=== PATIENT | male | born 1990 | race Caucasian/White ===

== ENCOUNTER 2016-07-25 12:49 | Emergency (ER) | payer SELFPAY ==
[~2016-07-25] VITALS: Ht 195.6 cm; Wt 74.8 kg
[~2016-07-25 12:49] MED LIST: ALPR2TAB2 PO; AZIT500T2 PO; ESCI20TA2 PO; PHEN100T26 PO; SULF-222 PO
[2016-07-25] MEDS ORDERED: morphine INJ 10 MG/ML 1ML (SYR OR VIAL) IM STA (13:13)
[2016-07-25] MEDS ORDERED: TETANUS,DIPTH,PERTUSS P/F (BOOSTRIX) 0.5 ML VIAL IM STA (13:13)
--- NOTE | 2016-07-25 13:15 | ED General ---
General Chief Complaint: Laceration Stated Complaint: L FOOT BIG TOE INJ Nursing Triage Note: AMB TO ED REPORTS WAS CHASING DOG LAST NIGHT STEPPED ON SOMETHING. SUPERFICAL LAC TO R 1ST AND 2ND TOE ABD R 1ST Nursing Sepsis Screen: No Definite Risk Source of Information: Patient Exam Limitations: No Limitations History of Present Illness Time Seen by Provider: 13:00 Allergies and Home Medications Allergies Coded Allergies: Cefaclor (Unverified Allergy, 11/07/10) Home Medications Trimethoprim/Sulfamethoxazole 1 Ea Tablet, 1 TAB PO DAILY, (Reported) Past Jtooxir-Hzgvms-Ugxhat Hx Patient Social History Alcohol Use: Denies Use Recreational Drug Use: Yes (DAILY MARIJUANA USE) Drug of Choice: meth, marijuana Smoking Status: Current Everyday Smoker Type Used: Cigarettes Recent Foreign Travel: No Contact w/Someone Who Travel: No Recent Infectious Disease Expo: No Recent Hopitalizations: No Surgeries HX Surgeries: Yes (TUBES IN EARS) Respiratory Hx Respiratory Disorders: No Cardiovascular Hx Cardiac Disorders: No Neurological Hx Neurological Disorders: No Reproductive System Hx Reproductive Disorders: No Genitourinary Hx Genitourinary Disorders: No Gastrointestinal Hx Gastrointestinal Disorders: No Musculoskeletal Hx Musculoskeletal Disorders: No Endocrine Hx Endocrine Disorders: No HEENT HX ENT Disorders: No Cancer Hx Cancer: No Psychosocial Hx Psychiatric Problems: Yes Behavioral Health Disorders: Anxiety, Depression Integumentary HX Skin/Integumentary Disorder: Yes (MRSA) Blood Transfusions Hx Blood Disorders: No Physical Exam Vital Signs Vital Sign - Last 12Hours 07/25/16 12:54 Temp 99.0 Pulse 70 Resp 18 B/P (MAP) 145/77 Pulse Ox 100 O2 Delivery Room Air Capillary Refill : Less Than 3 Seconds Progress/Results/Core Measures Results/Orders My Orders Orders - FEI SOOD PA DiphtSandi(Acell),Tet Adult (Boostrix (07/25/16 13:13) Morphine Injection (Morphine Injection (07/25/16 13:13) Lidocaine 2% Pf 20 Ml (Xylocaine 2% Pf) (07/25/16 14:00) Bupivacaine 0.5% Injection (Sensorcaine (07/25/16 14:00) Lidocaine 2% Injection 20 Ml (Xylocaine (07/25/16 13:52) Vital Signs/I&O Vital Sign - Last 12Hours 07/25/16 12:54 Temp 99.0 Pulse 70 Resp 18 B/P (MAP) 145/77 Pulse Ox 100 O2 Delivery Room Air Blood Pressure Mean: 99 Departure Impression Impression: Primary Impression: Avulsion of skin of toe Qualified Codes: S91.109A - Unspecified open wound of unspecified toe(s) without damage to nail, initial encounter Disposition: HOME, SELF-CARE Condition: Improved Departure-Patient Inst. Decision time for Depature: 14:21 Referrals: MIRNA WEST MD (PCP/Family) Primary Care Physician Patient Instructions: SKIN AVULSION Add. Discharge Instructions: All discharge instructions reviewed with patient and/or family. Voiced understanding. Tylenol extra strength kcqh-qjc-[id number] as directed for pain. Ibuprofen 800 mg by mouth every 8 hours as needed for pain. Tomorrow morning remove the bandage, shower with antibacterial soap, pat dry, apply triple antibiotics ointment twice daily for 3 days to the left toe and cover with a Band-Aid. Follow-up with your family practitioner for recheck if needed. Return to the emergency department for increased pain, redness, drainage, fever , or any other concerns. Work/School Note: Work Release Form Date Seen in the Emergency Department: Jul 25, 2016 Return to Work: Jul 28, 2016 FEI SOOD Jul 25, 2016 13:15
[2016-07-25] MEDS ORDERED: LIDOCAINE 2% 20 ML (XYLOCAINE) VIAL ONE (13:52)
[2016-07-25] MEDS ORDERED: LIDOCAINE PF 2% 20 ML (XYLOCAINE) AMP INJ ONE (14:00)
[2016-07-25] MEDS ORDERED: BUPIVACAINE 0.5% 30 ML (SENSORCAINE) VIAL INJ ONE (14:00)
[2016-07-25 14:32] VITALS: BP 146/77
== END 2016-07-25 14:31 | disposition home or self-care (01) ==
LOC: EDUNIT# 12:49 → ER 12:51
DX: S91.112A Laceration without foreign body of left great toe without damage to nail, initial encounter (principal); S91.115A Laceration without foreign body of left lesser toe(s) without damage to nail, initial encounter; F17.210 Nicotine dependence, cigarettes, uncomplicated; W22.8XXA Striking against or struck by other objects, initial encounter
CPT/HCPCS: 90715

== ENCOUNTER 2016-09-19 10:53 | Emergency (ER) | payer SELFPAY ==
[~2016-09-19] VITALS: Ht 180.3 cm; Wt 74.8 kg
--- NOTE | 2016-09-19 11:24 | ED EENT ---
History of Present Illness General Chief Complaint: Ear Problems Stated Complaint: LEFT EAR PAIN Nursing Triage Note: PT C/O L EAR PAIN X1 WEEK. WAS SEEN AT [facility] WHERE THEY FLUSHED EAR. NO RELIEF OF PAIN Source: patient Exam Limitations: no limitations History of Present Illness Time seen by provider: 11:24 Initial Comments 26 her old male patient presents to the emergency department complaints of left ear pain for one week. Patient states she was seen at [facility] times to with attempted flushing of the ear for cerumen impaction. Denies improvement in symptoms. Now has left sided headache and left jaw pain. Patient states he was instructed to follow-up with Dr. richmond as an outpatient, but states he is unable to afford the office visit due to not having insurance. Timing/Duration: last week Location: ear (L) Prearrival Treatment: other (flushing the left ear x2 at [facility] Allergies and Home Medications Allergies Coded Allergies: Cefaclor (Unverified Allergy, 11/07/10) Home Medications Docusate Sodium 10 Mg/Ml Liquid, 2-3 DROPS EACH EAR UD, #1 Ref 0 2-3 drops to the left ear BID prn earwax impaction. Prescribed by: FEI SOOD on 09/19/16 1154 Sulfamethoxazole/Trimethoprim 1 Each Tablet, 1 EACH PO BID, #14 Ref 0 Prescribed by: FEI SOOD on 09/19/16 1249 Tramadol HCl 50 Mg Tablet, 50 MG PO Q6H PRN for PAIN-MODERATE TO SEVERE, #10 Ref 0 Prescribed by: FEI SOOD on 09/19/16 1249 Trimethoprim/Sulfamethoxazole 1 Ea Tablet, 1 TAB PO DAILY, (Reported) Review of Systems Constitutional: No chills, No dizziness, No fever, No malaise Eyes: No Symptoms Reported Ears: See HPI, Denies Dizziness, Pain (left ear pain), Denies Tinnitus, Denies Bloody Discharge, Denies Clear Discharge, Denies Purulent Discharge, Denies Serosanguinous Discharge, Previous Injury (cauliflower ear bilaterally from wrestling in high school), Other (muffled sounds in the left ear) Nose: denies congestion, denies pain Mouth: see HPI Throat: denies pain, denies swelling, denies neck stiffness, denies hoarse, denies aphonia, denies muffled, denies painful swallowing, denies difficulty with fluids Respiratory: no symptoms reported Cardiovascular: no symptoms reported Skin: no symptoms reported Neurological: See HPI, Headache All Other Systems Reviewed Negative Unless Noted: Yes (Negative excepted noted.) Past Ituneen-Jafotf-Apzdpf Hx Patient Social History Alcohol Use: Occasionally Uses Recreational Drug Use: No Drug of Choice: meth, marijuana Smoking Status: Current Everyday Smoker Type Used: Cigarettes Recent Foreign Travel: No Contact w/Someone Who Travel: No Recent Infectious Disease Expo: No Recent Hopitalizations: No Immunizations Up To Date Tetanus Booster (TDap): Unknown Surgeries HX Surgeries: Yes (TUBES IN EARS) Respiratory Hx Respiratory Disorders: No Cardiovascular Hx Cardiac Disorders: No Neurological Hx Neurological Disorders: No Reproductive System Hx Reproductive Disorders: No Genitourinary Hx Genitourinary Disorders: No Gastrointestinal Hx Gastrointestinal Disorders: No Musculoskeletal Hx Musculoskeletal Disorders: No Endocrine Hx Endocrine Disorders: No HEENT HX ENT Disorders: Yes (cauliflower ear bilaterally from wrestling in high school) Cancer Hx Cancer: No Psychosocial Hx Psychiatric Problems: Yes Behavioral Health Disorders: Anxiety, Depression Integumentary HX Skin/Integumentary Disorder: Yes (MRSA) Blood Transfusions Hx Blood Disorders: No Reviewed Nursing Assessment Reviewed/Agree w Nursing PMH: Yes Family Medical History Significant Family History: No Pertinent Family Hx Physical Exam Vital Signs Vital Sign - Last 12Hours 09/19/16 11:09 Temp 96.6 Pulse 76 Resp 18 B/P (MAP) 129/91 Pulse Ox 98 General Appearance: WD/WN, no apparent distress Eyes: bilateral eye EOMI, bilateral eye PERRL, bilateral eye normal inspection Ears: right ear TM normal, right ear canal normal, left ear other (mild erythema and swelling of the external ear canal. cerumen impaction noted. deformity of the auricle bilaterally consistent with h/o cauliflower ear.), left ear tenderness (Tenderness with movement of the auricle and tragus.) Nose: normal inspection, No sinus tenderness Mouth/Throat: normal mouth inspection, pharynx normal, No dental tenderness, No mandibular swelling, No maxillary swelling Neck: non-tender, full range of motion, supple, lymphadenopathy (R), lymphadenopathy (L) Cardiovascular: regular rate, rhythm, no murmur Respiratory: lungs clear, normal breath sounds, no respiratory distress Neurologic/Psychiatric: alert, normal mood/affect, oriented x 3 Skin: normal color, warm/dry Ear : Ear Location: Left (Left) Foreign Body Removal: Impacted Cerumen Use of: Ear Curette, Irrigation Progress/Conclusion attempted ear wax removal of the left ear. a small amount of cerumen removed, however, patient was unable to tolerate complete removal due to discomfort from the waterpik. Patient to use colace solution, Cortisporin Otic, and to follow- up with [facility] for recheck. He is to follow-up with [facility] for recheck. Progress/Results/Core Measures Results/Orders My Orders Orders - FEI SOOD Neomy/Poly/Hc Otic Suspension (Cortispor (09/19/16 13:00) Vital Signs/I&O Vital Sign - Last 12Hours 09/19/16 11:09 Temp 96.6 Pulse 76 Resp 18 B/P (MAP) 129/91 Pulse Ox 98 Blood Pressure Mean: 104 Departure Impression Impression: Primary Impression: Impacted cerumen Qualified Codes: H61.22 - Impacted cerumen, left ear Additional Impressions: Ear pain, left Left otitis externa Qualified Codes: H60.502 - Unspecified acute noninfective otitis externa, left ear Disposition: 01 HOME, SELF-CARE Condition: Improved Departure-Patient Inst. Decision time for Depature: 11:45 Referrals: MIRNA WEST MD (PCP/Family) Primary Care Physician Patient Instructions: How to Use Ear Drops, Ear Wax Impaction (DC) Add. Discharge Instructions: All discharge instructions reviewed with patient and/or family. Voiced understanding. Medications as instructed. Avoid using claire pins or Q-tips in the ears. Liquid colace 2-3 drops in the left ear twice daily as needed for ear wax impaction. Wait 20-30 minutes, then attempt to irrigate the ear slowly with warm water using an ear pick (this may be purchased at [employer], [employer], etc...). Follow-up with [facility] for recheck if needed. Return to the emergency department for worsened pain, swelling, drainage, fever, headache, or any other concerns. Scripts Tramadol HCl (Tramadol HCl) 50 Mg Tablet 50 MG PO Q6H Y for PAIN-MODERATE TO SEVERE, #10 TAB 0 Refills Prov: FEI SOOD 09/19/16 Sulfamethoxazole/Trimethoprim (Bactrim Ds Tablet) 1 Each Tablet 1 EACH PO BID, #14 TAB 0 Refills Prov: FEI SOOD 09/19/16 Docusate Sodium (Docusate Sodium) 10 Mg/Ml Liquid 2-3 DROPS EACH EAR UD, #1 EA 0 Refills 2-3 drops to the left ear BID prn earwax impaction. Prov: FEI SOOD 09/19/16 FEI SOOD Sep 19, 2016 11:24
[2016-09-19] MEDS ORDERED: OFLO5DRO7 OT (11:54)
[2016-09-19] MEDS ORDERED: DOCU50LI EACH EAR (11:54)
[2016-09-19] MEDS ORDERED: TRAM50TA2 PO (12:49)
[2016-09-19] MEDS ORDERED: SULF1TAB35 PO (12:49)
[2016-09-19] MEDS ORDERED: NEOMY/POLYM/HC (CORTISPORIN) 10 ML BTL OT SCH (13:00)
[2016-09-19 13:07] VITALS: BP 129/91
== END 2016-09-19 13:05 | disposition home or self-care (01) ==
LOC: EDUNIT# 10:53 → ER 10:56
DX: H60.92 Unspecified otitis externa, left ear (principal); H61.22 Impacted cerumen, left ear; F41.9 Anxiety disorder, unspecified; F32.9 Major depressive disorder, single episode, unspecified; F17.210 Nicotine dependence, cigarettes, uncomplicated; Z86.14 Personal history of Methicillin resistant Staphylococcus aureus infection
CPT/HCPCS: 99283

== ENCOUNTER 2017-07-23 02:08 | Emergency (ER) | payer SELFPAY ==
[~2017-07-23] VITALS: Ht 180.3 cm; Wt 77.1 kg
[~2017-07-23 02:08] MED LIST changes: +DOCU50LI EACH EAR; +OFLO5DRO7 OT; +SULF1TAB35 PO; +TRAM50TA2 PO
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
--- OUTSIDE RECORDS SUMMARY | 2017-07-23 02:17 | XMS REPORT ---
Author Author ZOFIA PANCHAL [facility] Address [address] [place] [address] Phone Unavailable Care Team Providers Care Church Administrator Name Role Phone ZOFIA PANCHAL Unavailable Unavailable PROBLEMS Unknown Problems ALLERGIES Substance Reaction Event Type Date Status CECLORE Unknown Non Drug Allergy Jan, Active SOCIAL HISTORY No smoking Hx information available PLAN OF CARE Activity Details Follow Up PRN Reason:AKHIL VITAL SIGNS MEDICATIONS Unknown Medications RESULTS No Results PROCEDURES Procedure Date Ordered Related Diagnosis Body Site Full mouth debridement Jan 29, 2016 Dental Outreach adjust balance Jan 29, 2016 IMMUNIZATIONS No Known Immunizations
[2017-07-23] MEDS ORDERED: TETRACAINE 0.5% OPHTH SOLN 4 ML BTL (SINGLE DOSE ONLY) ONE (02:48)
[2017-07-23] MEDS ORDERED: FLUORESCEIN (FLUOR-I-STRIPS) 1 MG STRP ONE (02:48)
[2017-07-23] MEDS ORDERED: BSS 15 ML ONE (02:49)
[2017-07-23] MEDS ORDERED: BSS 15 ML IR ONE (03:00)
[2017-07-23] MEDS ORDERED: FLUORESCEIN (FLUOR-I-STRIPS) 1 MG STRP OU ONE (03:00)
[2017-07-23] MEDS ORDERED: TETRACAINE 0.5% OPHTH SOLN 4 ML BTL (SINGLE DOSE ONLY) OU ONE (03:00)
--- NOTE | 2017-07-23 03:13 | ED EENT ---
History of Present Illness General Chief Complaint: Eye Problems Stated Complaint: F O IN LEFT EYE Nursing Triage Note: Pt presents to ED with c/o left eye pain that began at 1700. Source: patient Exam Limitations: no limitations History of Present Illness Date Seen by Provider: Jul 23, 2017 Time Seen by Provider: 02:40 Initial Comments This 27-year-old gentleman presents to the emergency room with complaints of foreign-body sensation and pain in the left eye. He denies any change in vision. 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 He believes a foreign-body became lodged in his eye at that time but he is unsure if it is broken or metal. It was irritating him enough while he was trying to sleep tonight that he decided to present to the ER. Timing/Duration: abrupt Location: eye (L) Prearrival Treatment: no prearrival treatment Allergies and Home Medications Allergies Coded Allergies: cefaclor (Unverified Allergy, Unknown, 09/19/16) Home Medications Docusate Sodium 10 Mg/Ml Liquid, 2-3 DROPS EACH EAR UD 2-3 drops to the left ear BID prn earwax impaction. Prescribed by: FEI SOOD on 09/19/16 1154 Sulfamethoxazole/Trimethoprim 1 Each Tablet, 1 EACH PO BID Prescribed by: FEI SOOD on 09/19/16 1249 Tramadol HCl 50 Mg Tablet, 50 MG PO Q6H PRN for PAIN-MODERATE TO SEVERE Prescribed by: FEI SOOD on 09/19/16 1249 Trimethoprim/Sulfamethoxazole 1 Ea Tablet, 1 TAB PO DAILY, (Reported) Patient Home Medication List Home Medication List Reviewed: Yes Review of Systems Constitutional: no symptoms reported Eyes: See HPI Ears: No Symptoms Reported Nose: no symptoms reported Mouth: no symptoms reported Throat: no symptoms reported Respiratory: no symptoms reported Cardiovascular: no symptoms reported Gastrointestinal: no symptoms reported Musculoskeletal: no symptoms reported Skin: no symptoms reported Neurological: No Symptoms Reported Past Ossfmua-Ytpjii-Tsyjwh Hx Patient Social History Alcohol Use: Regular Use Number of Drinks Today: 5 Alcohol Beverage of Choice: Beer Recreational Drug Use: Yes (DAILY MARIJUANA USE) Drug of Choice: meth, marijuana Smoking Status: Current Everyday Smoker Type Used: Cigarettes Recent Foreign Travel: No Contact w/Someone Who Travel: No Recent Infectious Disease Expo: No Recent Hopitalizations: No Physical Abuse: No Sexual Abuse: No Mistreated: No Fear: No Immunizations Up To Date Tetanus Booster (TDap): Less than 5yrs Past Medical History Surgeries: Yes (TUBES IN EARS) Respiratory: No Cardiac: No Neurological: No Reproductive Disorders: No Gastrointestinal: No Musculoskeletal: No Endocrine: No Cancer: No Psychosocial: Yes Anxiety, Depression Nursing Suicide Risk Score: 1 Integumentary: Yes (MRSA) Blood Disorders: No Family Medical History No Pertinent Family Hx Physical Exam Vital Signs Vital Signs - First Documented 07/23/17 02:15 Temp 97.7 Pulse 63 Resp 18 B/P (MAP) 124/77 (93) Pulse Ox 99 O2 Delivery Room Air General Appearance: WD/WN, no apparent distress Eyes: left eye foreign body (Brown colored foreign body at the 3 o'clock position on the left cornea); bilateral eye PERRL, bilateral eye EOMI Ears: bilateral ear other (cauliflower ear bilaterally) Nose: normal inspection Neck: normal inspection 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 Attempted to lift the foreign body with a cotton swab was unsuccessful. The foreign body seemed fairly well embedded in the cornea. Fluorescein exam revealed no additional injuries. Progress/Results/Core Measures Results/Orders My Orders Orders - VIRGIE HENDRICKSON MD Tetracaine 0.5% Ophth Haydee Sdv (Tetracai (07/23/17 03:00) Fluorescein Strips (Iefuk-U-Vxeonv) (07/23/17 03:00) Balanced Salt Irrigation Soln (Bss Irrig (07/23/17 03:00) Fluorescein Strips (Ywgnr-K-Kuihbi) (07/23/17 02:48) Tetracaine 0.5% Ophth Haydee Sdv (Tetracai (07/23/17 02:48) Balanced Salt Irrigation Soln (Bss Irrig (07/23/17 02:49) Rx-Gentamicin Ophth Oint (Rx-Gentamicin (07/23/17 03:27) Vital Signs/I&O 07/23/17 02:15 Temp 97.7 Pulse 63 Resp 18 B/P (MAP) 124/77 (93) Pulse Ox 99 O2 Delivery Room Air Blood Pressure Mean: 93 Progress Progress Note : Progress Note I exam was performed with fluoroscopy seen. No abrasions were identified. Foreign body was seen at approximately the 3 o'clock position. I was unable to lift to this with a cotton swab. Patient was referred to Dr. Wilkinson. Case was reviewed with Dr. Wilkinson who graciously agrees to see the patient early this morning. Genoptic ointment was applied and the remainder of the tube was sent home with the patient. Patient was allowed to take him the balance saline and the tetracaine as well. He received strict instructions to use no more than one drop every 2 hours of tetracaine. Departure Impression Primary Impression: Foreign body of left eye Qualified Codes: T15.92XA - Foreign body on external eye, part unspecified, left eye, initial encounter Disposition: HOME, SELF-CARE Condition: Improved Departure-Patient Inst. Decision time for Depature: 03:40 Referrals: HO WILKINSON OD,LOCAL PHYSICIAN (PCP) Primary Care Physician Patient Instructions: How to Use Eye Ointment Add. Discharge Instructions: Apply the eye ointment to your under eyelid every 4 hours until seen by an eye doctor. You may use the tetracaine eyedrops no more than one drop every 2 hours for the next 24 hours. Do not use more than 24 hours. Follow-up with Dr. Wilkinson's office or the tile designer/piercing specialist of your choice. Call as soon as possible after 8 o'clock this morning to be seen today. Tell them you were advised by the emergency room that the foreign body should be removed today. Return to care if you have worsening problems. A work note has been provided in case you need the day off to arrange follow-up with the eye doctor. Please always use protective eyewear any time debris could enter the eye. All discharge instructions reviewed with patient and/or family. Voiced understanding. Work/School Note: Work Release Form Date Seen in the Emergency Department: Jul 23, 2017 Return to Work: Jul 24, 2017 Restrictions: No Restrictions Copy Copies To 1: HO WILKINSON OD, JOSHUA T MD Jul 23, 2017 03:13
[2017-07-23] MEDS ORDERED: RX-GENTAMICIN 0.3% OP OINT 3.5 GM TUBE OP STA (03:27)
[2017-07-23 04:00] VITALS: BP 143/81
== END 2017-07-23 04:00 | disposition home or self-care (01) ==
LOC: EDUNIT# 02:08 → ER 02:13
DX: T15.02XA Foreign body in cornea, left eye, initial encounter (principal); F41.9 Anxiety disorder, unspecified; F32.9 Major depressive disorder, single episode, unspecified; F15.10 Other stimulant abuse, uncomplicated; F12.10 Cannabis abuse, uncomplicated; F17.210 Nicotine dependence, cigarettes, uncomplicated; Z86.14 Personal history of Methicillin resistant Staphylococcus aureus infection; Z88.8 Allergy status to other drugs, medicaments and biological substances
CPT/HCPCS: 99283

== ENCOUNTER 2018-12-07 10:36 | Emergency (ER) | payer OTHER ==
[~2018-12-07] VITALS: Ht 180.3 cm; Wt 77.2 kg
--- NOTE | 2018-12-07 11:26 | ED Trauma-Multisystem ---
General Chief Complaint: Trauma-Non Activation Stated Complaint: R ELBOW/WRIST INJ;R KNEE INJ Nursing Triage Note: AMBULATED TO ROOM 07. SENT OVER FROM [facility]. STATES HE FELL 15 FEET OFF OF SCAFFOLDING YESTERDAY. [facility] REPORTS PT HAVING A RIGHT ELBOW, RAIDUS, AND PATELLAR FRACTURE. PT RECIEVED TORADOL AND NORFLEX IM BEFORE COMING TO THE ER. . History of Present Illness Date Seen by Provider: Dec 07, 2018 Time Seen by Provider: 11:05 Initial Comments 28-year-old male reports falling approximately 15 feet off scaffolding yesterday. He reports landing on his outstretched arms, then his feet. Denies any loss of consciousness, headache, head injury, vomiting, back/neck pain, or seizure activity. He was seen at [facility] earlier today and referred here. Occurred: Yesterday Severity: Moderate Pain/Injury Location: Lower Extremity, Upper Extremity Modifying Factors: Rest Loss of Consciousness: No Loss of Consciousness Associated Symptoms (Fall): No Abdominal Pain, No Chest Pain, No Confusion, No Dizziness, No Headache; Lightheadedness (after injury), Muscle Spasms (bilateral upper extremity); No Nausea/Vomiting, No Neck Pain, No Ringing in Ears, No Seizures, No Shortness of Air, No Slurred Speech; Trouble Walking (secondary to pain); No Vision Changes Allergies and Home Medications Allergies Coded Allergies: cefaclor (Unverified Allergy, Unknown, 12/07/18) Home Medications Tramadol HCl 50 Mg Tablet, 50 MG PO Q6H PRN for PAIN Prescribed by: ALISON MARINA on 12/07/18 1424 Patient Home Medication List Home Medication List Reviewed: Yes Review of Systems Review of Systems Constitutional: no symptoms reported, see HPI Eyes: No Symptoms Reported, See HPI Ears: No Symptoms Reported, See HPI Nose: No Symptoms Reported, See HPI Mouth: No Symptoms Reported, See HPI Throat: No Symptoms to Report, See HPI Respiratory: no symptoms reported, see HPI Cardiovascular: No Symptoms Reported, See HPI Gastrointestinal: no symptoms reported, see HPI Genitourinary: no symptoms reported, see HPI Musculoskeletal: see HPI; No back pain; joint pain ( left ankle, left elbow, right knee, right wrist and right elbow), muscle pain; No neck pain All Other Systems Reviewed Negative Unless Noted: Yes Past Fuzegnj-Smrjup-Mzzvua Hx Past Med/Social Hx: Reviewed and Corrections made Patient Social History Alcohol Use: Occasionally Uses Alcohol Beverage of Choice: Beer Recreational Drug Use: No Drug of Choice: meth, marijuana Smoking Status: Current Everyday Smoker Type Used: Cigarettes Recent Foreign Travel: No Contact w/Someone Who Travel: No Recent Infectious Disease Expo: No Recent Hopitalizations: No Immunizations Up To Date Tetanus Booster (TDap): Less than 5yrs Past Medical History Surgeries: Yes (TUBES IN EARS) Respiratory: No Cardiac: No Neurological: No Reproductive Disorders: No Genitourinary: No Gastrointestinal: No Musculoskeletal: Yes Fractures Endocrine: No HEENT: No Cancer: No Psychosocial: Yes Anxiety, Depression Integumentary: Yes (MRSA) Blood Disorders: No Family Medical History No Pertinent Family Hx Physical Exam Vital Signs Vital Signs - First Documented 12/07/18 10:55 Temp 36.7 Pulse 76 Resp 16 B/P (MAP) 122/95 (104) Pulse Ox 100 O2 Delivery Room Air Height, Weight, BMI Height: 5'11.00" Weight: 170lbs. oz. 77.469855vw; 23.00 BMI Method:Stated General Appearance: No Apparent Distress, WD/WN Head: No Evidence of Injury Eyes: Bilateral Eye Normal Inspection, Bilateral Eye PERRL, Bilateral Eye EOMI Ears, Nose, Throat: Hearing Grossly Normal, No Evidence of ENT Injury, No Dental Injury Neck: Full Range of Motion, Normal Inspection, Non Tender, Supple Cardiovascular: Regular Rate, Rhythm, No Edema, No Murmur, Normal Peripheral Pulses Respiratory: Chest Non Tender, Lungs Clear, Normal Breath Sounds Gastrointestinal: Normal Bowel Sounds, Non Tender, Soft Back: Normal Inspection, No CVA Tenderness, No Vertebral Tenderness Extremity: Normal Capillary Refill; No Normal Range of Motion (limited motion in the right knee, bilateral elbows and right wrist. Limitation motion secondary to pain. No abrasions or open fractures. 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 Full range of motion to the left ankle. Karly Coma Score Best Eye Response ([place]): (4) Open Spontaneously Best Verbal Response (Karly): (5) Oriented Best Motor Response ([place]): (6) Obeys Commands [place] Total: 15 Progress/Results/Core Measures Results/Orders Lab Results Laboratory Tests Test 12/07/18 11:29 Range/Units White Blood Count 12.1 H 4.3-11.0 10^3/uL Red Blood Count 4.72 4.35-5.85 10^6/uL Hemoglobin 14.7 13.3-17.7 G/DL Hematocrit 43 40-54 % Mean Corpuscular Volume 90 80-99 FL Mean Corpuscular Hemoglobin 31 25-34 PG Mean Corpuscular Hemoglobin Concent 35 32-36 G/DL Red Cell Distribution Width 13.4 10.0-14.5 % Platelet Count 219 130-400 10^3/uL Mean Platelet Volume 9.4 7.4-10.4 FL Neutrophils (%) (Auto) 70 42-75 % Lymphocytes (%) (Auto) 18 12-44 % Monocytes (%) (Auto) 12 0-12 % Eosinophils (%) (Auto) 0 0-10 % Basophils (%) (Auto) 0 0-10 % Neutrophils # (Auto) 8.5 H 1.8-7.8 X 10^3 Lymphocytes # (Auto) 2.2 1.0-4.0 X 10^3 Monocytes # (Auto) 1.4 H 0.0-1.0 X 10^3 Eosinophils # (Auto) 0.0 0.0-0.3 10^3/uL Basophils # (Auto) 0.0 0.0-0.1 10^3/uL Urine Color YELLOW Urine Clarity CLEAR Urine pH 6 5-9 Urine Specific [place] 1.025 H 1.016-1.022 Urine Protein NEGATIVE NEGATIVE Urine Glucose (UA) NEGATIVE NEGATIVE Urine Ketones NEGATIVE NEGATIVE Urine Nitrite NEGATIVE NEGATIVE Urine Bilirubin NEGATIVE NEGATIVE Urine Urobilinogen 1 NORMAL MG/DL Urine Leukocyte Esterase NEGATIVE NEGATIVE Urine RBC (Auto) NEGATIVE NEGATIVE Urine RBC NONE /HPF Urine WBC RARE /HPF Urine Squamous Epithelial Cells RARE /HPF Urine Crystals NONE /LPF Urine Bacteria TRACE /HPF Urine Casts NONE /LPF Urine Mucus NEGATIVE /LPF Urine Culture Indicated NO Sodium Level 140 135-145 MMOL/L Potassium Level 4.2 3.6-5.0 MMOL/L Chloride Level 108 H 98-107 MMOL/L Carbon Dioxide Level 22 21-32 MMOL/L Anion Gap 10 5-14 MMOL/L Blood Urea Nitrogen 16 7-18 MG/DL Creatinine 1.16 0.60-1.30 MG/DL Estimat Glomerular Filtration Rate > 60 BUN/Creatinine Ratio 14 Glucose Level 104 70-105 MG/DL Calcium Level 9.8 8.5-10.1 MG/DL Corrected Calcium 9.4 8.5-10.1 MG/DL Total Bilirubin 1.0 0.1-1.0 MG/DL Aspartate Amino Transf (AST/SGOT) 37 H 5-34 U/L Alanine Aminotransferase (ALT/SGPT) 21 0-55 U/L Alkaline Phosphatase 69 40-136 U/L Total Protein 7.4 6.4-8.2 GM/DL Albumin 4.5 3.2-4.5 GM/DL Urine Opiates Screen NEGATIVE NEGATIVE Urine Oxycodone Screen NEGATIVE NEGATIVE Urine Methadone Screen NEGATIVE NEGATIVE Urine Propoxyphene Screen NEGATIVE NEGATIVE Urine Barbiturates Screen NEGATIVE NEGATIVE Ur Tricyclic Antidepressants Screen NEGATIVE NEGATIVE Urine Phencyclidine Screen NEGATIVE NEGATIVE Urine Amphetamines Screen NEGATIVE NEGATIVE Urine Methamphetamines Screen NEGATIVE NEGATIVE Urine Benzodiazepines Screen NEGATIVE NEGATIVE Urine Cocaine Screen NEGATIVE NEGATIVE Urine Cannabinoids Screen NEGATIVE NEGATIVE My Orders Orders - LAINA,ALISON MEDICAL SUPPORT ASSISTANT Chest Pa/Lat (2 View) (12/07/18 11:20) Wrist, Right, 3 Views Or More (12/07/18 11:20) Cbc With Automated Diff (12/07/18 11:20) Comprehensive Metabolic Panel (12/07/18 11:20) Drug Screen Stat (Urine) (12/07/18 11:20) Ua Culture If Indicated (12/07/18 11:20) Hydrocodone/Apap 7.5/325 Tab (Lortab 7. (12/07/18 11:30) Elbow, Bilateral, 3 View (12/07/18 11:20) Ed Iv/Invasive Line Start (12/07/18 11:34) Medications Given in ED Current Medications Medications Dose Ordered Sig/Sidney Route Start Time Stop Time Status Last Admin Dose Admin Acetaminophen/ Hydrocodone Bitart 1 ea ONCE ONCE PO 12/07/18 11:30 12/07/18 11:32 DC 12/07/18 11:33 1 EA Vital Signs/I&O 12/07/18 12/07/18 10:55 14:38 Temp 36.7 36.7 Pulse 76 76 Resp 16 16 B/P (MAP) 122/95 (104) 130/85 (104) Pulse Ox 100 100 O2 Delivery Room Air Room Air Blood Pressure Mean: 104 POS Progress Progress Note : Time: 11:05 Progress Note Evaluated. X-rays of the right wrist, left ankle, right elbow and left elbow. Will give Hydrocodone 7.5/325 mg for pain. 1215 x-rays reviewed, the patient refused to have an x-ray of the left ankle, did not fill the abdomen and x-ray. Fractures reviewed with patient. [address] Hunt by phone, recommended splint for the right radius fracture and knee immobilizer for the right hip fracture. We'll continue with conservative treatment for the elbow. 1330 discharge instructions and return precautions reviewed with the patient. He will follow-up with orthopedics. All questions answered. Departure Impression Primary Impression: Fall Qualified Codes: W19.XXXA - Unspecified fall, initial encounter Additional Impressions: Elbow fracture, right Qualified Codes: S42.401A - Unspecified fracture of lower end of right humerus, initial encounter for closed fracture Right wrist fracture Qualified Codes: S62.101A - Fracture of unspecified carpal bone, right wrist, initial encounter for closed fracture Right patella fracture Qualified Codes: S82.044A - Nondisplaced comminuted fracture of right patella, initial encounter for closed fracture Left radial head fracture Qualified Codes: S52.125A - Nondisplaced fracture of head of left radius, initial encounter for closed fracture Left ankle sprain Qualified Codes: S93.492A - Sprain of other ligament of left ankle, initial encounter Disposition: 01 HOME, SELF-CARE Condition: Stable Departure-Patient Inst. Decision time for Depature: 13:30 Referrals: NO,LOCAL PHYSICIAN (PCP/Family) Primary Care Physician Patient Instructions: Wrist Fracture (DC), Elbow Fracture (DC), Patella Fracture (DC) Add. Discharge Instructions: Ice to bilateral elbows, right wrist and right knee 20 minutes every 2 hours while awake. Wear a knee immobilizer to right lower extremity at all times except when bathing. Wear splint to right wrist at all times except when bathing. Use tramadol 1 tablet every 6-8 hours as needed for pain. You may take ibuprofen 600 mg every 8 hours for pain. Follow-up with Dr. Hunt, call his office for an appointment.[phone] Return to the emergency department for new, urgent health care needs. All discharge instructions reviewed with patient and/or family. Voiced understanding. Scripts Tramadol HCl (Tramadol HCl) 50 Mg Tablet 50 MG PO Q6H PRN for PAIN, #30 TAB 0 Refills Prov: ALISON MARINA 12/07/18 Work/School Note: Work Release Form Date Seen in the Emergency Department: Dec 07, 2018 Restrictions: Need Release from Doctor Other Restrictions Listed Below: Multiple fractures to Right and Left arms, Right leg Copy Copies To 1: ELIJAH HUNT AMY ARNP Dec 07, 2018 11:26 POS
[2018-12-07] MEDS ORDERED: HYDROcodone/APAP 7.5 MG/325 MG (LORTAB, LORCET PLUS) TABLET PO ONE (11:30)
[2018-12-07 11:34] LABS: BASOPHILS % (AUTO) 0 % (0-10); EOSINOPHILS % (AUTO) 0 % (0-10); HEMATOCRIT 43 % (40-54); HEMOGLOBIN 14.7 G/DL (13.3-17.7); LYMPHOCYTES # (AUTO) 2.2 X 10^3 (1.0-4.0); LYMPHOCYTES % (AUTO) 18 % (12-44); MEAN CORPUSCULAR HEMOGLOBIN 31 PG (25-34); MEAN CORPUSCULAR HGB CONC 35 G/DL (32-36); MEAN CORPUSCULAR VOLUME 90 FL (80-99); MEAN PLATELET VOLUME 9.4 FL (7.4-10.4); MONOCYTES # (AUTO) 1.4 X 10^3 (0.0-1.0); MONOCYTES % (AUTO) 12 % (0-12); NEUTROPHILS # (AUTO) 8.5 X 10^3 (1.8-7.8); NEUTROPHILS % (AUTO) 70 % (42-75); PLATELET COUNT 219 10^3/uL (130-400); RED CELL DISTRIBUTION WIDTH 13.4 % (10.0-14.5); WHITE BLOOD COUNT 12.1 10^3/uL (4.3-11.0)
[2018-12-07 11:36] LABS: BILIRUBIN,URINE NEGATIVE (NEGATIVE); CLARITY,URINE CLEAR; COLOR,URINE YELLOW; GLUCOSE, URINE (UA) NEGATIVE (NEGATIVE); KETONES,URINE NEGATIVE (NEGATIVE); LEUKOCYTE ESTERASE ,URINE NEGATIVE (NEGATIVE); NITRITE,URINE NEGATIVE (NEGATIVE); PH,URINE 6 (5-9); PROTEIN,URINE NEGATIVE (NEGATIVE)
[2018-12-07 11:43] LABS: BACTERIA,URINE TRACE /HPF; SQUAMOUS EPITHELIAL CELL,UR RARE /HPF; WBC,URINE RARE /HPF
[2018-12-07 11:49] LABS: AMPHETAMINE SCREEN, URINE NEGATIVE (NEGATIVE); BARBITURATE SCREEN URINE NEGATIVE (NEGATIVE); BENZODIAZEPINES SCREEN URINE NEGATIVE (NEGATIVE); CANNABINOID SCREEN, URINE NEGATIVE (NEGATIVE); COCAINE SCREEN URINE NEGATIVE (NEGATIVE); METHADONE STAT NEGATIVE (NEGATIVE); METHAMPHETAMINE SCREEN URINE S NEGATIVE (NEGATIVE); OPIATE SCREEN URINE NEGATIVE (NEGATIVE); OXYCODONE STAT NEGATIVE (NEGATIVE); PROPOXYPHENE STAT NEGATIVE (NEGATIVE); TRICYCLIC ANTIDEPRESSANTS SCRE NEGATIVE (NEGATIVE)
[2018-12-07 11:54] LABS: ALANINE AMINOTRANSFERASE 21 U/L (0-55); ALBUMIN 4.5 GM/DL (3.2-4.5); ALKALINE PHOSPHATASE 69 U/L (40-136); BUN/CREATININE RATIO 14; CALCIUM 9.8 MG/DL (8.5-10.1); CARBON DIOXIDE 22 MMOL/L (21-32); CHLORIDE 108 MMOL/L (98-107); CREATININE SERUM 1.16 MG/DL (0.60-1.30); GFR ESTIMATED > 60; GLUCOSE 104 MG/DL (70-105); POTASSIUM 4.2 MMOL/L (3.6-5.0); SODIUM 140 MMOL/L (135-145); TOTAL PROTEIN 7.4 GM/DL (6.4-8.2)
--- NOTE | 2018-12-07 12:12 | Diagnostic Imaging Report ---
INDICATION: Fall off of scaffolding. Time of exam 11:46 AM 2 views of the chest were obtained and compared with exam dating back to 03/09/2007. The heart size is normal. The lungs are clear. No parenchymal contusion or pneumothorax is seen. There is no effusion. The bony structures are unremarkable. IMPRESSION: No acute abnormality is detected. Dictated by: Dictated on workstation # [id number]
--- NOTE | 2018-12-07 12:12 | Diagnostic Imaging Report ---
INDICATION: Fall with right wrist pain AP, oblique, and lateral views of the right wrist are obtained There is a linear lucency in the distal radius involving the radial styloid along its dorsal aspect. Findings compatible with nondisplaced fracture. No other bony abnormality is seen. There is no dislocation. IMPRESSION: Acute nondisplaced fracture of the radial styloid. Dictated by: Dictated on workstation # [id number]
--- NOTE | 2018-12-07 12:13 | Diagnostic Imaging Report ---
INDICATION: Fall with bilateral elbow pain. Time of exam 11:53 a.m. TECHNIQUE: Multiple views of the bilateral elbows were obtained. FINDINGS: Alignment is normal bilaterally. There is cortical interruption involving the proximal radius bilaterally in the region of the neck consistent with bilateral radius neck fractures. No other fractures are seen. There are prominent anterior fat pads bilaterally. IMPRESSION: Proximal radius neck fractures bilaterally. Dictated by: Dictated on workstation # [id number]
[2018-12-07] MEDS ORDERED: TRAM50TA2 PO (14:24)
[2018-12-07 14:38] VITALS: BP 130/85
== END 2018-12-07 14:38 | disposition home or self-care (01) ==
LOC: EDUNIT# 10:36 → ER 10:37
DX: S42.401A Unspecified fracture of lower end of right humerus, initial encounter for closed fracture (principal); S62.101A Fracture of unspecified carpal bone, right wrist, initial encounter for closed fracture; S82.044A Nondisplaced comminuted fracture of right patella, initial encounter for closed fracture; S52.125A Nondisplaced fracture of head of left radius, initial encounter for closed fracture; S93.492A Sprain of other ligament of left ankle, initial encounter; F41.9 Anxiety disorder, unspecified; F32.9 Major depressive disorder, single episode, unspecified; R40.2142 Coma scale, eyes open, spontaneous, at arrival to emergency department; R40.2252 Coma scale, best verbal response, oriented, at arrival to emergency department; R40.2362 Coma scale, best motor response, obeys commands, at arrival to emergency department; F17.210 Nicotine dependence, cigarettes, uncomplicated; Z88.1 Allergy status to other antibiotic agents; W12.XXXA Fall on and from scaffolding, initial encounter
CPT/HCPCS: 29125; 36415; 71046; 73110; 80053; 80306; 81000; 85025

== ENCOUNTER 2021-01-31 13:26 | Emergency (ER) | payer SELFPAY ==
[~2021-01-31] VITALS: Ht 180 cm; Wt 74.0 kg
[~2021-01-31 13:26] MED LIST changes: +OFLO5DRO33 OT; -OFLO5DRO7 OT; -SULF1TAB35 PO; +SULF1TAB38 PO; -TRAM50TA2 PO; +TRM50T PO
--- NOTE | 2021-01-31 14:26 | ED Syncope ---
General Chief Complaint: Dizziness/Syncope Stated Complaint: SEIZURE Source of Information: Patient Exam Limitations: No Limitations History of Present Illness Date Seen by Provider: Jan 31, 2021 Time Seen by Provider: 14:24 Initial Comments To ER by private vehicle accompanied by his with reports of a syncopal event last night. He had been feeling fine all day and then he was sleeping on the couch, got up to go to the bathroom and upon arriving at the bathroom he passed out and had some twitching/convulsion like activity. Today he has been a little groggy with a headache. No history of this. Drinks 2-3 beers a day after work. Smokes marijuana. Denies other drug use. Timing/Prior Episodes: No Prior History Precipitating Factors: None Current Symptoms: Back to Normal, Headache Allergies and Home Medications Allergies Coded Allergies: cefaclor (Unverified Allergy, Unknown, 12/07/18) Patient Home Medication List Home Medication List Reviewed: Yes Tramadol HCl (Tramadol HCl) 50 Mg Tablet, 50 MG PO Q6H PRN for PAIN Prescribed by: ALISON MARINA on 12/07/18 1424 Review of Systems Constitutional: see HPI EENTM: see HPI Respiratory: no symptoms reported Cardiovascular: no symptoms reported Genitourinary: no symptoms reported Musculoskeletal: no symptoms reported Skin: no symptoms reported Psychiatric/Neurological: No Symptoms Reported Past Dquoiax-Shjooh-Iynyke Hx Immunizations Up To Date Tetanus Booster (TDap): Less than 5yrs Past Medical History Surgeries: Yes (TUBES IN EARS) Respiratory: No Cardiac: No Neurological: No Reproductive Disorders: No Genitourinary: No Gastrointestinal: No Musculoskeletal: Yes Fractures Endocrine: No HEENT: No Cancer: No Psychosocial: Yes Anxiety, Depression Integumentary: Yes (MRSA) Blood Disorders: No Family Medical History No Pertinent Family Hx Physical Exam Vital Signs Vital Signs - First Documented 01/31/21 14:15 Pulse 77 Resp 16 B/P (MAP) 127/81 (96) Pulse Ox 98 O2 Delivery Room Air Capillary Refill : Height, Weight, BMI Height: 5'11.00" Weight: 170lbs. oz. 77.601371kk; 23.00 BMI Method:Stated General Appearance: No Apparent Distress, WD/WN Neck: Full Range of Motion, Normal Inspection Cardiovascular: Regular Rate, Rhythm, Normal Peripheral Pulses Respiratory: No Accessory Muscle Use, No Respiratory Distress Gastrointestinal: Normal Bowel Sounds, Non Tender, Soft Extremities: Normal Capillary Refill, Normal Inspection Neurologic/Psychiatric: Alert, Oriented x3 Cranial Nerves: Normal Hearing, Normal Speech, PERRL Skin: Normal Color, Warm/Dry Progress/Results/Core Measures Results/Orders Lab Results Laboratory Tests Test 01/31/21 14:50 Range/Units White Blood Count 7.5 4.3-11.0 10^3/uL Red Blood Count 4.85 4.30-5.52 10^6/uL Hemoglobin 15.1 13.3-17.7 g/dL Hematocrit 44 40-54 % Mean Corpuscular Volume 91 80-99 fL Mean Corpuscular Hemoglobin 31 25-34 pg Mean Corpuscular Hemoglobin Concent 34 32-36 g/dL Red Cell Distribution Width 12.0 10.0-14.5 % Platelet Count 210 130-400 10^3/uL Mean Platelet Volume 10.0 9.0-12.2 fL Immature Granulocyte % (Auto) 0 % Neutrophils (%) (Auto) 46 42-75 % Lymphocytes (%) (Auto) 43 12-44 % Monocytes (%) (Auto) 9 0-12 % Eosinophils (%) (Auto) 1 0-10 % Basophils (%) (Auto) 1 0-10 % Neutrophils # (Auto) 3.4 1.8-7.8 10^3/uL Lymphocytes # (Auto) 3.2 1.0-4.0 10^3/uL Monocytes # (Auto) 0.7 0.0-1.0 10^3/uL Eosinophils # (Auto) 0.1 0.0-0.3 10^3/uL Basophils # (Auto) 0.1 0.0-0.1 10^3/uL Immature Granulocyte # (Auto) 0.0 0.0-0.1 10^3/uL Sodium Level 139 135-145 MMOL/L Potassium Level 4.2 3.6-5.0 MMOL/L Chloride Level 107 98-107 MMOL/L Carbon Dioxide Level 20 L 21-32 MMOL/L Anion Gap 12 5-14 MMOL/L Blood Urea Nitrogen 20 H 7-18 MG/DL Creatinine 1.19 0.60-1.30 MG/DL Estimat Glomerular Filtration Rate 72 BUN/Creatinine Ratio 17 Glucose Level 104 70-105 MG/DL Calcium Level 9.5 8.5-10.1 MG/DL Corrected Calcium 9.1 8.5-10.1 MG/DL Total Bilirubin 0.4 0.1-1.0 MG/DL Aspartate Amino Transf (AST/SGOT) 19 5-34 U/L Alanine Aminotransferase (ALT/SGPT) 18 0-55 U/L Alkaline Phosphatase 64 40-136 U/L Total Protein 7.4 6.4-8.2 GM/DL Albumin 4.5 3.2-4.5 GM/DL My Orders Orders - ALBINA GABRIEL APRN Cbc With Automated Diff (01/31/21 14:23) Comprehensive Metabolic Panel (01/31/21 14:23) Ct Head Wo (01/31/21 14:23) Ekg Tracing (01/31/21 14:23) Vital Signs/I&O 01/31/21 14:15 Pulse 77 Resp 16 B/P (MAP) 127/81 (96) Pulse Ox 98 O2 Delivery Room Air Departure Communication (Admissions) EKG shows sinus bradycardia rate of [address] segment changes no ectopy normal intervals. Impression Primary Impression: Syncope Disposition: 01 HOME, SELF-CARE Condition: Stable Departure-Patient Inst. Decision time for Depature: 15:23 Referrals: [facility] (PCP/Family) Primary Care Physician ALBINA GABRIEL APRN Jan 31, 2021 14:26
--- NOTE | 2021-01-31 14:40 | Diagnostic Imaging Report ---
PROCEDURE: CT head without contrast. TECHNIQUE: Multiple contiguous axial images were obtained through the brain without the use of intravenous contrast. Auto Exposure Controls were utilized during the CT exam to meet ALARA standards for radiation dose reduction. INDICATION: Syncopal episode the previous day. COMPARISON: None available. FINDINGS: There is no CT evidence of an acute intracranial abnormality. There is no evidence of intracranial hemorrhage. There is no mass effect or shift. There is no hydrocephalus. The basilar cisterns are patent. There is no abnormal extra-axial fluid collection. George-white matter differentiation appears maintained. There is no abnormal hypodensity evident within the basal ganglia or within the posterior fossa. The mastoid air cells are clear. The visualized paranasal sinuses clear. Orbital contents unremarkable. No calvarial abnormality is demonstrated. There are dystrophic calcifications within the external ear bilaterally. IMPRESSION: 1. No CT evidence of an acute intracranial abnormality. Dictated by: Dictated on workstation # [id number]
[2021-01-31 14:58] LABS: BASOPHILS # (AUTO) 0.1 10^3/uL (0.0-0.1); BASOPHILS % (AUTO) 1 % (0-10); EOSINOPHILS # (AUTO) 0.1 10^3/uL (0.0-0.3); EOSINOPHILS % (AUTO) 1 % (0-10); HEMATOCRIT 44 % (40-54); HEMOGLOBIN 15.1 g/dL (13.3-17.7); LYMPHOCYTES # (AUTO) 3.2 10^3/uL (1.0-4.0); LYMPHOCYTES % (AUTO) 43 % (12-44); MEAN CORPUSCULAR HEMOGLOBIN 31 pg (25-34); MEAN CORPUSCULAR HGB CONC 34 g/dL (32-36); MEAN CORPUSCULAR VOLUME 91 fL (80-99); MONOCYTES # (AUTO) 0.7 10^3/uL (0.0-1.0); MONOCYTES % (AUTO) 9 % (0-12); NEUTROPHILS # (AUTO) 3.4 10^3/uL (1.8-7.8); NEUTROPHILS % (AUTO) 46 % (42-75); PLATELET COUNT 210 10^3/uL (130-400); WHITE BLOOD COUNT 7.5 10^3/uL (4.3-11.0)
[2021-01-31 15:08] LABS: ALBUMIN 4.5 GM/DL (3.2-4.5)
[2021-01-31 15:09] LABS: POTASSIUM 4.2 MMOL/L (3.6-5.0)
[2021-01-31 15:10] LABS: CALCIUM 9.5 MG/DL (8.5-10.1)
[2021-01-31 15:11] LABS: TOTAL PROTEIN 7.4 GM/DL (6.4-8.2)
[2021-01-31 15:13] LABS: BILIRUBIN,TOTAL 0.4 MG/DL (0.1-1.0)
[2021-01-31 15:15] LABS: CREATININE SERUM 1.19 MG/DL (0.60-1.30)
[2021-01-31 15:26] VITALS: BP 119/65
== END 2021-01-31 15:26 | disposition home or self-care (01) ==
LOC: EDUNIT# 13:26 → ER 13:28
DX: R55 Syncope and collapse (principal)
CPT/HCPCS: 36415; 70450; 80053; 85025; 93005